=== PATIENT | female | born 1985 | race Caucasian/White ===

== ENCOUNTER 2024-03-15 04:00 | Inpatient (IN) ==
[2024-03-15] MEDS ORDERED: LIDOCAINE 1% LOCAL 20 ML VIAL INFIL PRN (04:37)
[2024-03-15] MEDS: SODIUM CHLORIDE 0.9% 1,000 ML IV SCH (04:51)
[2024-03-15] MEDS ORDERED: ROPIVACAINE 0.5% PF 5 MG/ML 20 ML VIAL EPI PRN (04:57)
[2024-03-15] MEDS ORDERED: fentaNYL citrate PF 100 MCG/2 ML VIAL EPI PRN (04:57)
[2024-03-15] MEDS ORDERED: SODIUM CHLORIDE 0.9% PF INJ 10 ML VIAL EPI STA (04:57)
[2024-03-15] MEDS ORDERED: SODIUM CHLORIDE 0.9% PF INJ 10 ML VIAL EPI PRN (04:57)
[2024-03-15] MEDS ORDERED: NALOXONE HCL 0.4 MG/1 ML VIAL/CARP IV PRN (04:57)
[2024-03-15] MEDS ORDERED: ePHEDrine sulfate 50 MG/ML AMP IV PRN (04:57)
[2024-03-15] MEDS ORDERED: BUPIVACAINE 0.25% PF 30 ML VIAL EPI PRN (04:57)
[2024-03-15] MEDS ORDERED: LIDOCAINE 2% MPF LOCAL 5 ML VIAL EPI PRN (04:57)
[2024-03-15] MEDS ORDERED: NALOXONE HCL 1 MG in SODIUM CHLORIDE 0.9% 1,000 ML IV PRN (04:57)
[2024-03-15] MEDS ORDERED: fentaNYL citrate PF 100 MCG/2 ML VIAL EPI STA (04:57)
[2024-03-15] MEDS ORDERED: diphenhydrAMINE 50 MG/ML VIAL IV PRN (04:57)
[2024-03-15] MEDS ORDERED: NALBUPHINE HCL INJ 10 MG/ML AMP IV PRN (04:57)
--- NOTE | 2024-03-15 04:57 | Anesthesiology Consultation ---
Date of Service March 15, 2024 Assessment & Plan Chart Review Chart Review: Patient NOT seen in Pre Admission Testing and Acceptable Risk for Labor Epidural Consults Requested medical ASA ASA2 Proposed Anesthesia Anesthesia Type: Labor Epidural Risk / Benefits Reviewed With: PT / POA / Parent / Guardian, Accepts Plan and Informed Consent Obtained History Allergies Allergy/AdvReac Type Severity Reaction Status Date / Time No Known Allergies Allergy Verified 03/11/24 08:56 Medications Home Medications Medication Instructions Recorded Confirmed Last Taken aspirin [Baby Aspirin] PO 11/16/23 03/11/24 Unknown levothyroxine 100 mcg capsule 100 mcg PO DAILY 11/16/23 03/11/24 Unknown magnesium PO 11/16/23 03/11/24 Unknown mecobalamin (vitamin B12) PO 11/16/23 03/11/24 Unknown 21-iron fu-folic acid PO 11/16/23 03/11/24 Unknown [ Complete] levothyroxine 88 mcg tablet 88 mcg PO DAILY #90 tabs 03/09/24 03/11/24 Unknown NPO Date Last Intake of Fluids: 03/22/24 Time Last Intake of Fluids: 04:30 Date Last Intake of Solids: 03/14/24 Time Last Intake of Solids: 21:00 Past Medical History Medical History Varicella vaccination Exercise / Class Metabolic Activity 1 > 8 Run/Swim/Ski/Tennis Past Family History Family History Grandmother (Paternal) Breast cancer Father Parkinson disease Grandfather (Paternal) Diabetes Hypertension Grandmother (Maternal) Hypertension Kidney disease Mother Thyroid disease Denies family history of Ovarian cancer Past Surgical History Surgical History S/P breast augmentation Past Anesthesia History No Hx of Anesthesia Complications and No Family Hx of Anesthesia Complications History of PONV No Hx of PONV and No Hx of Motion Sickness Social History Smoking Status: Former smoker Do You Dip or Chew Tobacco: No Review of Systems ROS Unobtainable: All systems reviewed & are unremarkable except as noted in HPI & below Constitutional: no fever Physical Exam Vital Signs Last Vital Signs Pulse 89 03/15/24 04:53 BP 108/71 03/15/24 04:24 Pulse Ox 98 03/15/24 04:53 ENMT Mouth: no TMJ abnormality Thyromental Distance: > or= 3.5 Finger Breadths Mallampati Class: II Neck normal visual inspection and trachea midline; neck extension not limited Respiratory normal respiratory effort Auscultation: lungs clear to auscultation bilaterally Cardiovascular Rate/Rhythm: regular rate and regular rhythm Heart Sounds: no murmur Musculoskeletal Spine: normal cervical ROM Extremities: full ROM of extremities Neurologic moves all extremities Psychiatric Orientation: alert and oriented x 3
[2024-03-15 05:33] LABS: Hematocrit (blood only) 40.2 % (37.0-47.0); Mean Corpuscular Hemoglobin 32.8 pg (25.0-34.0); Mean Corpuscular Hgb Conc 34.8 g/dL (32.0-36.0); Mean Corpuscular Volume 94.1 fL (80.0-100.0); Mean Platelet Volume 12.4 fL (9.4-12.4); Platelet Count 189 K/uL (130-400); RDW Coefficient of Variation 12.4 % (11.5-14.5); RDW Standard Deviation 42.5 fL (36.4-46.3); Red Blood Count 4.27 M/uL (4.20-5.40); White Blood Count 13.44 K/ul (4.8-10.8)
--- NOTE | 2024-03-15 05:40 | History & Physical Report ---
Date of Service March 15, 2024 Assessment & Plan (1) Active labor: (2) Hypothyroid in , antepartum: Plan 38 yo G1 at 37 6/7 wga presents in labor VSS Fetus cat 1 Labor - augment prn GBS neg desires epidural Admission and Anticipated Discharge Date Admission Date: March 15, 2024 History of Present Illness Chief Complaint: Labor Primary Care Provider: [facility] 38 yo G1 at 37 6/7 wga presents w/ ctx increasing in frequency and intensity. 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 denies hx stis Allergies Allergy/AdvReac Type Severity Reaction Status Date / Time No Known Allergies Allergy Verified 03/11/24 08:56 Home Medications Medication Instructions Recorded Confirmed Type aspirin [Baby Aspirin] 81 mg PO DAILY 11/16/23 03/15/24 History levothyroxine 100 mcg capsule 100 mcg PO DAILY 11/16/23 03/15/24 History magnesium 1 tab PO DAILY 11/16/23 03/15/24 History mecobalamin (vitamin B12) 1 tab PO DAILY 11/16/23 03/15/24 History 21-iron fu-folic acid 1 tab PO DAILY 11/16/23 03/11/24 History [ Complete] levothyroxine 88 mcg tablet 88 mcg PO DAILY #90 tabs 03/09/24 03/15/24 Rx Patient History Medical History Varicella vaccination Surgical History S/P breast augmentation Family History Grandmother (Paternal) Breast cancer Father Parkinson disease Grandfather (Paternal) Diabetes Hypertension Grandmother (Maternal) Hypertension Kidney disease Mother Thyroid disease Denies family history of Ovarian cancer Social History Smoking Status: Former smoker Do You Dip or Chew Tobacco: No; marital status: marital status details: Bill SnowdenLanLuke (36) [phone] Current Living Situation: Spouse Current Living Situation Comment: lives with spouse, no pets current occupational status: student current occupation: PhD student [employer] Physical Exam Genitourinary: OB Exam Monitor Tracing: + external FHT monitor used, + external uterine monitor used (q4) and + category I (145-150/mod/+accel/-decel) SVE 3-4cm/90/-2 by nursing Results & Data Vital Signs (Past 12 Hours) Vital Signs Pulse BP Pulse Ox 03/15/24 05:35 99 H 100 03/15/24 05:30 87 100 03/15/24 05:25 87 99 03/15/24 05:20 83 98 03/15/24 05:15 84 97 03/15/24 05:10 86 100 03/15/24 05:05 80 100 03/15/24 04:58 92 H 97 03/15/24 04:53 89 98 03/15/24 04:24 83 108/71 Laboratory Results OB Labs: Hgb 13.5 g/dl (12.0-16.0) 01/05/24 Hct 41.7 % (37.0-47.0) 01/05/24 Treponema pallidum Ab Negative (Negative) 01/05/24 Glucose 1 Hr 50 gm 78 mg/dl (70-130) 01/05/24 OB Optional Labs: Thyroid Stimulating Hormone (TSH) 1.509 uIu/ml (0.300-4.500) 01/05/24 Labs Reviewed: Initial OB Labs Blood Type & RH: A + Antibody Screen: Negative HCT/HGB: HCT 40.8/ HGB 14 Platelets: 210 Hep C IgG 13yrs+ Old: Negative Pap Test Chlamydia: Negative Gonorrhea: Negative Rubella: Immune RPR: Non Reactive Urine Culture/Screen: Negative HBsAg: Non Reactive HIV: Non-Reactive MCV: 100 Ultrasound Diagnostic Findings ant plac Code Status & VTE Plan VTE Prophylaxis Plan VTE Prophylaxis will be ordered: No Reason for no VTE drug order: Treatment not indicated Coding Level of Care Code None Diagnoses Active labor Hypothyroid in , antepartum O99.280; E03.9
[2024-03-15] MEDS: BUPIVACAINE 0.25% PF 30 ML VIAL EPI STA (05:54)
[2024-03-15] MEDS: LIDOCAINE 2%/EPINEPHRINE 1:200,000 20 ML PF EPI STA (05:54)
[2024-03-15] MEDS: fentANYL 2 MCG/ML BUPIVacaine 0.125%-NSS 100ML BAG EPI PRN (05:58)
--- NOTE | 2024-03-15 07:59 | Labor Progress Brief Note ---
Date of Service March 15, 2024 Subjective comfortable w/ epidural Assessment & Plan (1) Active labor: (2) Hypothyroid in , antepartum: Plan 38 yo G1 at 37 6/7 wga presents in labor VSS Fetus cat 1 Labor - now complete and arom, due for straight cath. Pt does not feel any pressure so will see if laboring down helps with this GBS neg epidural in place Admission and Anticipated Discharge Date Admission Date: March 15, 2024 Physical Exam Genitourinary: Manual OB Exam: + cervical dilation 10 cm, + cervical effacement 100%, + station + 1 and + 2 and + amniotic fluid (arom clear) OB Exam Monitor Tracing: + external FHT monitor used, + external uterine monitor used (q3-4) and + category I (145-150/mod/+accel/-decel) Results & Data Vital Signs (Past 12 Hours) Vital Signs Temp Pulse Resp BP Pulse Ox 03/15/24 07:55 88 100 03/15/24 07:50 83 98 03/15/24 07:45 76 99 03/15/24 07:43 75 104/65 03/15/24 07:40 75 98 03/15/24 07:35 73 99 03/15/24 07:30 77 16 99 03/15/24 07:29 78 110/65 03/15/24 07:25 83 100 03/15/24 07:20 79 100 03/15/24 07:15 94 H 100 03/15/24 07:13 84 109/67 03/15/24 07:10 88 99 03/15/24 07:05 94 H 99 03/15/24 07:04 20 03/15/24 07:04 98.1 F 20 03/15/24 07:00 94 H 99 03/15/24 07:00 82 101/61 100 03/15/24 06:55 86 99 03/15/24 06:50 88 100 03/15/24 06:45 84 99 03/15/24 06:43 90 115/67 03/15/24 06:40 86 100 03/15/24 06:35 93 H 100 03/15/24 06:30 86 100 03/15/24 06:29 86 108/67 03/15/24 06:25 90 100 03/15/24 06:24 80 118/66 03/15/24 06:20 98 H 100 03/15/24 06:15 77 100 03/15/24 06:11 75 117/69 03/15/24 06:10 81 100 03/15/24 06:09 75 110/65 03/15/24 06:07 92 H 106/63 03/15/24 06:05 100 03/15/24 06:05 77 03/15/24 06:05 74 109/62 03/15/24 06:03 81 112/62 03/15/24 06:01 77 110/62 03/15/24 06:00 77 99 03/15/24 05:59 82 111/63 03/15/24 05:57 75 111/61 03/15/24 05:55 85 105/57 L 99 03/15/24 05:53 76 113/63 03/15/24 05:50 97 03/15/24 05:50 80 03/15/24 05:50 86 112/74 03/15/24 05:45 90 98 03/15/24 05:40 93 H 98 03/15/24 05:35 99 H 100 03/15/24 05:30 87 100 03/15/24 05:25 87 99 03/15/24 05:20 83 98 03/15/24 05:15 84 97 03/15/24 05:10 86 100 03/15/24 05:05 80 100 03/15/24 04:58 92 H 97 03/15/24 04:53 89 98 03/15/24 04:24 83 108/71 03/15/24 04:24 98.8 F 18 Coding Level of Care Code None Diagnoses Active labor Hypothyroid in , antepartum O99.280; E03.9
[2024-03-15] MEDS: OXYTOCIN 30 UNITS/NSS 30 UNITS/500 ML BAG IV PRN (09:40)
--- NOTE | 2024-03-15 09:59 | Delivery Summary ---
Vaginal Delivery Summary Date of Service March 15, 2024 Vaginal Delivery Summary and 1st Degree LAC (bilateral labial lacs) Pre-operative Diagnosis: at 37 weeks acitve labor Post-operative Diagnosis: same Procedure: epidural arom first and bilateral labial lacerations and repair. qBL: 250cc Anesthesia: epidural Procedure: The patient presented to labor and delivery in active labor. Got epidural. then arom at 9cm for clear fluid. Progessed to c/c/+2 station. The patient pushed for less than an hour to deliver a viable female infant in CARLOS position. The nose and mouth were bulb suctioned on the perineum and the rest of the was then delivered without difficulty. The baby was vigorous. The nose and mouth were again bulb suctioned and the was placed in the maternal abdomen for drying and attention. Cord was clamped and cut at 1.5minutes of life. Cord blood obtained. Placenta delivered spontaneous, intact with a three vessel cord. Cervix/sulci/rectum were intact. A first degree perineal laceration and bilateral labial laceration were repaired in the normal standard fashion. Hemostasis obtained with dilute pitocin and fundal massage. Apgars were pending. Mother and baby doing well at the end of the del miguelito. [facility] Vaginal Delivery Charge Delivery Type Details: and 1st Degree LAC (bilateral labial lacs)
[2024-03-15] MEDS ORDERED: bisacodyL 10 MG SUPP PR PRN (10:04)
[2024-03-15] MEDS ORDERED: HYDROCORTISONE ACETATE 25 MG SUPP PR PRN (10:04)
[2024-03-15] MEDS ORDERED: OXYTOCIN 30 UNITS/NSS 30 UNITS/500 ML BAG IV PRN (10:04)
[2024-03-15] MEDS ORDERED: oxyCODONE/ACETAMINOPHEN 5mg/325mg TAB PO PRN (10:04)
[2024-03-15] MEDS: BUPIVACAINE 0.25% PF 30 ML VIAL ONE (10:30)
[2024-03-15] MEDS: fentaNYL citrate PF 100 MCG/2 ML VIAL ONE (10:30)
[2024-03-15] MEDS: ePHEDrine sulfate 50 MG/ML AMP ONE (10:30)
[2024-03-15] MEDS: fentANYL 2 MCG/ML BUPIVacaine 0.125%-NSS 100ML BAG ONE (10:31)
[2024-03-15] MEDS: LIDOCAINE 2%/EPINEPHRINE 1:200,000 20 ML PF ONE (10:31)
[2024-03-15] MEDS: SODIUM CHLORIDE 0.9% PF INJ 10 ML VIAL ONE (10:31)
--- NOTE | 2024-03-15 10:52 | Anesthesia Procedure Note ---
Date of Service March 15, 2024 Anesthesia Post Epidural Note Vital Signs Vital Signs: Temp Pulse Resp BP Pulse Ox 98.4 F 78 16 111/69 100 03/15/24 07:57 03/15/24 08:50 03/15/24 07:30 03/15/24 08:45 03/15/24 08:50 Pain Intensity Bilateral Abdomen: Pain Intensity: 6 Notes Mental Status: alert / awake / arousable and participated in evaluation Nausea / Vomiting: adequately controlled Pain: adequately controlled Airway Patency, RR, SpO2: stable & adequate BP & HR: stable & adequate Hydration State: stable & adequate Neuraxial Anesthesia: was administered and sensory block is resolving Anesthetic Complications: no major complications apparent and Pt Satisfied with anesthetic care Epidural: Removed without complications and With tip intact
[2024-03-15] MEDS: BENZOCAINE 20% SPRY 85 APPLN/85 GM CAN EXT PRN (11:52)
[2024-03-15] MEDS: LEVOTHYROXINE SODIUM 88 MCG TABLET PO SCH (12:27)
[2024-03-15] MEDS: IBUPROFEN 600 MG TAB PO PRN (16:43)
[2024-03-15] MEDS: DOCUSATE SODIUM 100 MG CAP PO SCH (20:05)
[2024-03-15] MEDS: ACETAMINOPHEN 325 MG TAB PO PRN (20:05)
[2024-03-16 06:37] LABS: Hematocrit (blood only) 35.2 % (37.0-47.0); Hemoglobin 12.2 g/dl (12.0-16.0)
--- NOTE | 2024-03-16 06:42 | Medical Student Progress Note ---
Date of Service March 16, 2024 Assessment & Plan (1) normal course: Plan: Patient is a 38yr old , day 1 s/p spontaneous vaginal delivery. She underwent an epidural and sustained a 1st degree perineal laceration and bilateral labial lacerations. She is overall recovering very well. She is able to void urine, pass gas, ambulate, has started to breastfeed. # Bleeding: Her bleeding is more than her typical menstrual periods. She is not passing any large clots. We expect her bleeding to continue to decrease with time. -Continue to monitor bleeding status #Pain Control: Her pain is well controlled on current regime. -Continue with ibuprofen and acetaminophen. # Services: She is planning to breast feed. The baby is latching well. She is a first time mother and may benefit from lactational services optimizing her breast feeding experience. -Please have lactational services see her. #Discharge: She is overall recovering very well. We would recommend she stays at least 48hrs total to continue to monitor bleeding, pain, and educate her regarding baby care. Admission and Anticipated Discharge Date Admission Date: March 15, 2024 Subjective Patient is day 1 who is s/p spontaneous vaginal delivery. She does not endorse any complaints this morning. She states her pain is a 5/10 and has been well managed with ibuprofen and acetominophen. Her last dosage of these was at 10pm yesterday. She is voiding independently and feels she completely voids her bladder. She has not had a BM yet, but has been able to pass gas. She was able to ambulate without difficulty last night. She states she is still bleeding. The bleeding is more than a typical menstrual cycle and she is not passing any large clots. She plans to breast feed her baby and states her baby is latching well. She feels her mood is very good right now and is very excited to be a mother. She denies fevers, chills, headache, blurry vision, vision loss, chest pain, cough, SOB, leg pain, or swelling. Physical Exam Constitutional: Well appearing, NAD Respiratory: Lungs CTAB without wheezes, rales, rhonchi Cardiovascular: Heart RRR without murmurs, rubs, gallops Gastrointestinal (Abdomen): Uterus is firm, nontender, palpated 3cm above the umbilicus. Normoactive bowel sounds Psychiatric: Appropriate mood and affect Results & Data Vital Signs (Past 12 Hours) Vital Signs Temp Pulse Resp BP Pulse Ox O2 Del Method 03/16/24 04:00 36.5 C 76 18 103/66 97 Room Air 03/15/24 23:15 36.7 C 74 16 107/68 96 Room Air 03/15/24 19:50 36.6 C 80 16 104/68 96 Room Air
--- NOTE | 2024-03-16 07:30 | Obstetrical Progress Note ---
Date of Service March 16, 2024 Assessment & Plan (1) normal course: Plan Doing well. Routine pp care. Encourage ambulation. Continue breast feeding support. Day #:: 1 Subjective Ambulation: ambulating normally Voiding: no voiding problems Passing Gas:: Yes Diet Tolerance:: regular diet Lochia:: Small Feeding Type:: breast feeding some cramping with breast feeding. feeling well. Physical Exam Constitutional WD/WN, vitals as above Cardiovascular Extremities: no calf tenderness and no edema Gastrointestinal (Abdomen) soft, nt, nd ff/nt 1 below u Results & Data Vital Signs (Past 12 Hours) Vital Signs Temp Pulse Resp BP Pulse Ox O2 Del Method 03/16/24 04:00 36.5 C 76 18 103/66 97 Room Air 03/15/24 23:15 36.7 C 74 16 107/68 96 Room Air 03/15/24 19:50 36.6 C 80 16 104/68 96 Room Air
[2024-03-16] MEDS: PRENATAL VITAMIN 1 TAB PO SCH (08:08)
[2024-03-16] MEDS: DIPHTHER/TETAN/PERTUS Vaccine (Tdap, Adol/Adult) 0.5mL IM ONE (15:21)
[2024-03-16] MEDS: bisacodyL 5 MG TABEC PO SCH (19:20)
[2024-03-16 21:08] VITALS: O2SAT 97
[2024-03-17 00:32] VITALS: TEMP 98.6
--- NOTE | 2024-03-17 07:07 | Medical Student Progress Note ---
Date of Service March 17, 2024 Assessment & Plan (1) normal course: Plan: Patient is a 38yr old , day 2 s/p spontaneous vaginal delivery. She underwent an epidural and sustained a 1st degree perineal laceration and bilateral labial lacerations. She is overall recovering very well. She is able to void urine, pass gas, ambulate, has started to breastfeed. # Bleeding: Her bleeding has significantly decreased from yesterday. She is not passing any large clots. We expect her bleeding to continue to decrease with time. -Continue to monitor bleeding status #Pain Control: Her pain is well controlled on current regime. -Continue with ibuprofen and acetaminophen. #Discharge: She is overall recovering very well. It would be appropriate for her to be discharged home today. Admission and Anticipated Discharge Date Admission Date: March 15, 2024 Subjective Patient is day 2 who is s/p spontaneous vaginal delivery. She does not endorse any complaints this morning. Her bleeding has significantly improved, she is ambulating, urinating, and passing gas. Her pain is well controlled with ibuprofen and acetaminophen. She denies fevers, chills, headache, blurry vision, vision loss, chest pain, cough, SOB, leg pain, or swelling. Physical Exam Constitutional: Well appearing, NAD Respiratory: Lungs CTAB without wheezes, rales, rhonchi Cardiovascular: RRR without murmurs, rubs, gallops. No leg tenderness, warmth, or swelling. Gastrointestinal (Abdomen): Abdomen is soft, nontender, nondistended. Uterus is firm and nontender. Fundus is palpated 2cm above the umbilicus. Normoactive bowel sounds. Psychiatric: Appropriate mood and affect Results & Data Vital Signs (Past 12 Hours) Vital Signs Temp Pulse Resp BP Pulse Ox O2 Del Method 03/17/24 00:10 37.0 C 74 16 103/66 97 Room Air 03/16/24 19:15 37.1 C 80 16 104/66 97 Room Air Supervising Attestation Patient seen with resident and agree with the above findings and plan. Stable for discharge.
[2024-03-17 08:37] VITALS: BP 111/70; PULSE 72; RESP 18
== END 2024-03-17 14:05 | disposition home or self-care (01) | DRG 807 ==
LOC: OPB 04:00 → 4S1 04:05 → 4E2 12:26